=== PATIENT | male | born 1965 | race Caucasian/White ===

== ENCOUNTER 2017-06-03 12:05 | Emergency (ER) | payer OTHER ==
[2017-06-03 12:13] VITALS: BP 134/80; PULSE 94; RESP 16; TEMP 98.6; O2SAT 98
[2017-06-03] MEDS ORDERED: TDAP ADULT 0.5 ML INJ (BOOSTRIX) IM ONE (12:32)
[2017-06-03] MEDS ORDERED: LET GEL TOPICAL 1 EA SYR TP ONE (12:32)
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
== END 2017-06-03 13:05 | disposition home or self-care (01) ==
DX: S09.90XA Unspecified injury of head, initial encounter (principal); S00.12XA Contusion of left eyelid and periocular area, initial encounter; S00.81XA Abrasion of other part of head, initial encounter; Z23 Encounter for immunization; V18.4XXA Pedal cycle driver injured in noncollision transport accident in traffic accident, initial encounter; Y92.410 Unspecified street and highway as the place of occurrence of the external cause; Y93.89 Activity, other specified